=== PATIENT | male | born 2000 | race Caucasian/White ===

== ENCOUNTER 2024-01-02 16:31 | Emergency (ER) | payer OTHER ==
--- NOTE | 2024-01-02 17:23 | ER ---
Nurse's Notes [facility] Name: Jay Panda Age: 23 yrs Sex: Male : 2000 Arrival Date: 01/02/2024 Time: 16:31 Bed 9 Private MD: Diagnosis: Alcohol abuse with intoxication, uncomplicated Presentation: 01/01 16:37 Chief complaint: Patient states: My mom is now in the hospital and I am anxious because jb4 she left me. My head has been hurting for the past 3 years. I had 2 12oz beers prior to calling EMS EMS states: Pt called from the gas station reporting feeling anxious, having chest pain, and a headache. Pt just moved here from [place] and is currently homeless. Pt stumbling while walking to the restroom. Coronavirus screen: At this time, the client does not indicate any symptoms associated with coronavirus-19. Ebola Screen: No symptoms or risks identified at this time. Initial Sepsis Screen: Does the patient meet any 2 criteria? No. Patient's initial sepsis screen is negative. Does the patient have a suspected source of infection? No. Patient's initial sepsis screen is negative. Risk Assessment: Do you want to hurt yourself or someone else? Patient reports no desire to harm self or others. Onset of symptoms was January 02, 2024. Transition of care: patient was not received from another setting of care. 16:37 Method Of Arrival: EMS: [facility] jb4 16:37 Acuity: MONSE 4 jb4 Historical: - Allergies: 16:40 No Known Allergies; jb4 - PMHx: 16:40 Anxiety; jb4 - PSHx: 16:40 None; jb4 - Immunization history:: Adult Immunizations up to date. - Infectious Disease History:: Denies. - Social history:: Smoking status: Patient denies any tobacco usage or history of. Patient uses alcohol, occasionally. Screenin:09 [facility] ED Fall Risk Assessment (Adult) History of falling in the last 3 months, jb4 including since admission No falls in past 3 months (0 pts) Confusion or Disorientation No (0 pts) Intoxicated or Sedated Yes (3 pts) Impaired Gait Yes (1 pt) Mobility Assist Device Used No (0 pt) Altered Elimination No (0 pt) Score/Fall Risk Level 3 or more points = High Risk Oriented to surroundings, Maintained a safe environment, Educated pt \T\ family on fall prevention, incl call for assistance when getting out of bed. Abuse screen: Denies threats or abuse. Nutritional screening: No deficits noted. Tuberculosis screening: No symptoms or risk factors identified. Assessment: 17:09 General: Appears in no apparent distress. comfortable, Behavior is calm, uncooperative, jb4 Smells of alcohol, pt is unable to walk a straight line, continues to stumble and bounce off the rene. Is refusing to follow commands to stay in the room. Has repeatedly been redirected back to his room.. Pain: Complains of pain in headache Pain does not radiate. Pain currently is 10 out of 10 on a pain scale. Neuro: Level of Consciousness is awake, alert, obeys commands, Oriented to person, place, time, situation. Cardiovascular: Patient's skin is warm and dry. Respiratory: Airway is patent Respiratory effort is even, unlabored, Respiratory pattern is regular, symmetrical. GI: No signs and/or symptoms were reported involving the gastrointestinal system. : No signs and/or symptoms were reported regarding the genitourinary system. EENT: Sclera/Cornea are reddened in outer aspect of conjuctiva of right eye, iris of right eye, inner aspect of conjuctiva of right eye, outer aspect of conjuctiva of left eye, iris of left eye and inner aspect of conjunctiva of left eye. Derm: Skin is intact, Skin is pink, warm \T\ dry. Musculoskeletal: Circulation, motion, and sensation intact. Range of motion: intact in all extremities. 17:18 Reassessment: Pt continues to wonder the halls and needs to be redirected back to his jb4 room. Attempted to leave to smoke. Continues to have unsteady gait when trying to ambulate to the door. Pt remains uncooperative. Is becoming more difficult to redirect back to his room. 17:45 Reassessment: TUSHAR coronel has tried to Contact pt's Mother 3 times hospital staff has tried 3 jb4 times. No answer on any attempt. Voice mail left. Officers speaking with pt. 17:57 Reassessment: Patient appears in no apparent distress at this time. Patient and/or jb4 family updated on plan of care and expected duration. Pain level reassessed. d/c pending pt becoming more sober. Pt is being cooperative at this time. 19:00 Reassessment: Report given to ABRAHAM Little. jb4 19:05 Reassessment: Pt discharged ER care complete. Pt intoxicated and will stay in room to vc1 sleep off alcohol consumption. 01/02 02:50 Reassessment: Patient and/or family updated on plan of care and expected duration. Pain vc1 level reassessed. Patient is alert, oriented x 3, equal unlabored respirations, skin warm/dry/pink. General: Appears in no apparent distress. comfortable, Behavior is calm, cooperative, flat. Pain: Denies pain. Neuro: Level of Consciousness is awake, obeys commands, Oriented to person, place, time, situation. Neuro: Level of Consciousness is awake, obeys commands, Oriented to person, place, time, situation, Appropriate for age. Cardiovascular: Heart tones S1 S2 present Capillary refill < 3 seconds Patient's skin is warm and dry. Respiratory: Airway is patent Respiratory effort is even, unlabored, Respiratory pattern is regular, symmetrical, Breath sounds are clear bilaterally. GI: No deficits noted. No signs and/or symptoms were reported involving the gastrointestinal system. : No deficits noted. No signs and/or symptoms were reported regarding the genitourinary system. EENT: Sclera/Cornea are reddened in right eye and left eye. Derm: Skin is intact, is healthy with good turgor, Skin is dry, Skin is normal. Musculoskeletal: Circulation, motion, and sensation intact. Range of motion: intact in all extremities. Vital Signs: 01/01 16:37 BP 137 / 57; Pulse 87; Resp 16; Temp 97.7; Pulse Ox 100% on R/A; Weight 86.18 kg (R); jb4 Height 5 ft. 10 in. (R); Pain 11/30; 01/02 02:45 BP 124 / 60; Pulse 85; Resp 17; Temp 98; Pulse Ox 100% ; vc1 01/01 16:37 Body Mass Index 27.26 (86.18 kg, 177.8 cm) jb4 01/01 16:37 Pain Scale: Adult jb4 ED Course: 01/01 16:33 Patient arrived in ED. jb4 16:38 Luci Yusuf MD is Attending Physician. gb1 16:40 Triage completed. jb4 16:40 Arm band placed on right wrist. jb4 17:09 Patient has correct armband on for positive identification. Bed in low position. Call jb4 light in reach. Side rails up X 1. Provided Education on: Educated on the need to stay in the room and in the bed in current condition.. 17:09 No provider procedures requiring assistance completed. Patient did not have IV access jb4 during this emergency room visit. 17:18 Oh Nuñez, RN is Primary Nurse. jb4 Administered Medications: No medications were administered Medication: 17:09 VIS not applicable for this client. jb4 Outcome: 17:23 Discharge ordered by . gb1 19:30 Condition: stable vc1 19:30 Discharge instructions given to patient, Instructed on discharge instructions, follow up and referral plans. Demonstrated understanding of instructions, follow-up care, 01/02 02:50 Discharged to home ambulatory, vc1 02:53 Patient left the ED. vc1 Signatures: Oh Nuñez RN RN jb4 Anabel Fuentes RN RN vc1 Luci Yusuf MD MD gb1 Corrections: (The following items were deleted from the chart) 01/01 16:41 16:40 Home Meds: None; jb4 jb4 16:41 16:40 PMHx: None; jb4 jb4
--- NOTE | 2024-01-03 02:54 | EDPHYS ---
Physician Documentation [facility] Name: Jay Panda Age: 23 yrs Sex: Male : 2000 Arrival Date: 01/02/2024 Time: 16:31 Bed 9 Private MD: ED Physician Luci Yusuf HPI: 01/01 17:24 This 23 yrs old Male presents to ER via EMS with complaints of Anxiety. gb1 Historical: - Allergies: 16:40 No Known Allergies; jb4 - PMHx: 16:40 Anxiety; jb4 - PSHx: 16:40 None; jb4 - Immunization history:: Adult Immunizations up to date. - Infectious Disease History:: Denies. - Social history:: Smoking status: Patient denies any tobacco usage or history of. Patient uses alcohol, occasionally. Exam: 17:24 Constitutional: This is a well developed, well nourished patient who is awake, alert, gb1 and in no acute distress. Head/Face: Normocephalic, atraumatic. Eyes: Pupils equal round and reactive to light, extra-ocular motions intact. Lids and lashes normal. Conjunctiva and sclera are non-icteric and not injected. Cornea within normal limits. Periorbital areas with no swelling, redness, or edema. ENT: Nares patent. No nasal discharge, no septal abnormalities noted. Tympanic membranes are normal and external auditory canals are clear. Oropharynx with no redness, swelling, or masses, exudates, or evidence of obstruction, uvula midline. Mucous membranes moist. Neck: Trachea midline, no thyromegaly or masses palpated, and no cervical lymphadenopathy. Supple, full range of motion without nuchal rigidity, or vertebral point tenderness. No Meningismus. Chest/axilla: Normal chest wall appearance and motion. Nontender with no deformity. No lesions are appreciated. Cardiovascular: Regular rate and rhythm with a normal S1 and S2. No gallops, murmurs, or rubs. Normal PMI, no JVD. No pulse deficits. Abdomen/GI: Soft, non-tender, with normal bowel sounds. No distension or tympany. No guarding or rebound. No evidence of tenderness throughout. Back: No spinal tenderness. No costovertebral tenderness. Full range of motion. Skin: Warm, dry with normal turgor. Normal color with no rashes, no lesions, and no evidence of cellulitis. Vital Signs: 16:37 BP 137 / 57; Pulse 87; Resp 16; Temp 97.7; Pulse Ox 100% on R/A; Weight 86.18 kg (R); jb4 Height 5 ft. 10 in. (R); Pain 11/30; 01/02 02:45 BP 124 / 60; Pulse 85; Resp 17; Temp 98; Pulse Ox 100% ; vc1 01/01 16:37 Body Mass Index 27.26 (86.18 kg, 177.8 cm) jb4 01/01 16:37 Pain Scale: Adult jb4 MDM: 01/01 16:38 Medical Screening Exam initiated gb1 17:24 Data reviewed: vital signs, nurses notes. ED course: 24-year-old male homeless brought gb1 in by EMS pick pack worker in the gas station for concern for public intoxication and the patient states that he is anxious. Patient is intoxicated mildly but able to ambulate without assistance and we have called PD for help upon discharge. Patient is awake alert not complaining of any chest pain or shortness of breath and does not appear to be incoherent.. Administered Medications: No medications were administered Disposition Summary: 01/02/24 17:23 Discharge Ordered Notes: Location: Home gb1 Condition: Stable gb1 Diagnosis - Alcohol abuse with intoxication, uncomplicated gb1 Followup: gb1 - With: Private Physician - When: - Reason: If symptoms return Discharge Instructions: - Discharge Summary Sheet gb1 - Alcohol Intoxication gb1 Forms: - Medication Reconciliation Form gb1 - Antibiotic Education gb1 - Prescription Opioid Use gb1 - Patient Portal Instructions gb1 - Leadership Thank You Letter gb1 Signatures: Oh Nuñez RN RN jb4 Luci Yusuf MD MD gb1 Corrections: (The following items were deleted from the chart) 16:41 16:40 Home Meds: None; hortencia burnett 16:41 16:40 PMHx: None; jbRenetta burnett
[2024-01-03 02:57] VITALS: O2SAT 100
[2024-01-03 02:59] VITALS: BP 124/60; TEMP 98
== END 2024-01-03 02:53 | disposition home or self-care (01) ==
LOC: ER 16:31
DX: F10.129 Alcohol abuse with intoxication, unspecified (principal)